=== PATIENT | female | born 2000 | race Caucasian/White ===

== ENCOUNTER 2023-05-18 12:40 | Emergency (ER) | payer MEDICAID, SELFPAY ==
[2023-05-18 12:48] VITALS: BP 112/80; PULSE 61; RESP 16; TEMP 36.7; O2SAT 98; BMI 24.1
[2023-05-18 13:50] LABS: Basophils % 0.3 %; Eosinophils # 0.1 10^3/uL (0.0-0.8); Eosinophils % 0.9 %; Hematocrit 39.7 % (36-47); Lymphocytes # 3.3 10^3/uL (0.8-4.8); Lymphocytes % 50.7 %; Mean Corpuscular HGB Conc 32.7 g/dL (30-55); Mean Corpuscular Volume 88.4 fl (85-98); Mean Platelet Volume 10.1 fL (7.4-10.4); Monocytes # 0.5 10^3/uL (0.2-0.9); Monocytes % 6.8 %; Neutrophils % 41.1 %; Nucleated Red Blood Cells % 0 %; Platelet Count 272 10^3/cmm (157-399); Red Blood Count 4.49 10^6/uL (3.85-5.65); Red Cell Distribution Width 12.4 % (12.1-15.1); White Blood Count 6.57 10^3/uL (3.29-11.43)
[2023-05-18 14:10] LABS: Alanine Aminotransferase 8 U/L (0-33); Albumin Level 4.5 g/dL (3.5-5.2); Alkaline Phosphatase 48 U/L (35-105); Anion Gap 14.7 (5-19); Aspartate Amino Transferase 13 U/L (0-32); Blood Urea Nitrogen 9 mg/dL (6-20); Calcium 9.2 mg/dL (8.5-10.5); Carbon Dioxide 23 mmol/L (22-29); Chloride 105 mmol/L (98-107); Globulin 3.3 g/dL (1.3-4.6); Glucose 92 mg/dL (65-115); HCG, Serum Qual Negative (Negative); Lipase 21 U/L (13-60); Osmolality Calculated 286 mOsm/kg (285-295); Potassium 3.7 mmol/L (3.5-5.1); Sodium 139 mmol/L (136-145); Total Bilirubin 0.7 mg/dL (0.15-1.2); Total Protein 7.8 g/dL (6.6-8.7)
[2023-05-18 14:31] LABS: Bilirubin Urine Neg (Negative); Blood Urine 2+ (Negative); Glucose Urine UA Norm (Normal); Ketones Urine Negative (Negative); Leukocyte Esterase Urine Negative (Negative); Nitrate Urine Negative (Negative); Protein Urine Neg (Negative); Urine Appearance Clear (CLEAR); Urine Color Straw (Yellow); Urobilinogen Urine Norm (Negative); pH Urine 7 (5-7)
[2023-05-18 14:32] LABS: Add Urine Culture? No; Add Urine Microscopic? YES; Bacteria Urine TRACE /hpf; RBC Urine 0-4 /hpf (0-2); Squamous Epithelial Cell Urine 0-4 /hpf (0-5); WBC Urine 0-4 /hpf (0-5)
--- NOTE | 2023-05-18 15:57 | ED_ITS ---
HPI - Abdominal Pain 2 General: Chief Complaint: Abdominal Pain Stated Complaint: abd pain Time Seen by Provider: 05/18/23 15:52 Source: patient Mode of arrival: ambulatory History of Present Illness: 23-year-old female presents emergency ro om with complaints of pelvic pain. She had cramping and discomfort. No dysuria urgency or frequency no hematuria no vomiting or diarrhea. MD elicited complaint: abdominal pain Onset (ago): day(s) Pain Consistency: intermittent and now resolved Location: Pelvis Quality: cramping Exacerbating factors: nothing Relieving factors: nothing Associated Symptoms: Denies anorexia, belching, bloating, change in bowel habits, change in stool character, chills, coffee ground emesis, constipation, GI cramping, diarrhea, dyspepsia, dysuria, excessive flatus, fever(s), heartburn, hematochezia, hematuria, hematemesis, fecal incontinence, loose stools, melena, nausea, poor appetite, syncope and vomiting Review of Systems 2 Const: Denies: fever(s) or chills Card: Denies: chest pain or syncope Resp: Denies: dyspnea GI: Denies: abdominal pain, nausea, vomiting, hematemesis, coffee ground emesis, heartburn, diarrhea, constipation, bloating, GI cramping, belching, excessive flatus, fecal incontinence, change in bowel habits, change in stool character, hematochezia or melena : Denies: dysuria, urinary frequency, urinary urgency or hematuria Musc: Denies: neck pain or back pain Skin/Breast: Denies: rash Physical Exam 2 Const: COMMON NORMALS: no acute distress GENERAL APPEARANCE: cooperative and comfortable ORIENTATION/CONSCIOUSNESS: Yes awake, Yes oriented to person, Yes oriented to place and Yes oriented to time HENMT: COMMON NORMALS: normocephalic, atraumatic and hearing grossly normal bilaterally HEAD & SCALP: normocephalic and atraumatic Resp: COMMON NORMALS: normal respiratory effort, No retractions, No use of accessory muscles and clear to auscultation bilaterally AUSCULTATION: clear to auscultation bilaterally Cardio: COMMON NORMALS: regular rate, regular rhythm and No murmurs present (Cardio) RATE: regular rate RHYTHM: regular rhythm GI: COMMON NORMALS: Soft to palpation and No hepatosplenomegaly present A USCULTATION: Yes normoactive bowel sounds PALPATION: Yes Soft to palpation, No Tenderness to palpation present (GI), No Guarding due to palpation present (GI) and Yes No hepatosplenomegaly present Extremity: COMMON NORMALS: normal to inspection, capillary refill normal, no clubbing, cyanosis or edema, no calf tenderness and no pedal edema Neuro: SENSORIUM/ORIENTATION: Yes oriented to person, Yes oriented to place and Yes oriented to time Skin: COMMON NORMALS: no rashes or lesions noted GENERAL SKIN EXAM: no rashes or lesions noted Course 2 Vital Signs: Vital signs: Vital Signs Temperature 98.1 F 05/18/23 12:48 Pulse Rate 82 05/18/23 16:54 Respiratory Rate 16 05/18/23 12:48 Blood Pressure 107/70 05/18/23 16:54 Pulse Oximetry 99 05/18/23 16:54 Oxygen Delivery Me thod Room Air 05/18/23 12:48 MDM - Abdominal Pain Medical Decision Making No acute findings at this time white count normal screening negative. Set up outpatient pelvic ultrasound Medical Records I reviewed the patient's medical records. Lab Data I reviewed the patient's lab results. 05/18/23 13:35 05/18/23 13:35 Labs/Radiology: Laboratory Results WBC 6.57 10^3/uL (3.29-11.43) 05/18/23 13:35 RBC 4.49 10^6/uL (3.85-5.65) 05/18/23 13:35 Hgb 13.00 g/dL (11.27-16.99) 05/18/23 13:35 Hct 39.7 % (36-47) 05/18/23 13:35 MCV 88.4 fl (85-98) 05/18/23 13:35 MCH 29.0 pg (27-33) 05/18/23 13:35 MCHC 32.7 g/dL (30-55) 05/18/23 13:35 RDW 12.4 % (12.1-15.1) 05/18/23 13:35 Plt Count 272 10^3/cmm (157-399) 05/18/23 13:35 MPV 10.1 fL (7.4-10.4) 05/18/23 13:35 Neut % (Auto) 41.1 % 05/18/23 13:35 Lymph % (Auto) 50.7 % 05/18/23 13:35 Grand % (Auto) 6.8 % 05/18/23 13:35 Eos % (Auto) 0.9 % 05/18/23 13:35 Baso % (Auto) 0.3 % 05/18/23 13:35 Neut # (Auto) 2.70 10^3/uL (1.8-7.7) 05/18/23 13:35 Lymph # (Auto) 3.3 10^3/uL (0.8-4.8) 05/18/23 13:35 Grand # (Auto) 0.5 10^3/uL (0.2-0.9) 05/18/23 13:35 Eos # (Auto) 0.1 10^3/uL (0.0-0.8) 05/18/23 13:35 Baso # (Auto) 0.0 10^3/uL (0.0-0.1) 05/18/23 13:35 Nucleated RBC % (auto) 0 % 05/18/23 13:35 Nucleated RBCs # 0.0 /100WBC 05/18/23 13:35 Sodium 139 mmol/L (136-145) 05/18/23 13:35 Potassium 3.7 mmol/L (3.5-5.1) 05/18/23 13:35 Chloride 105 mmol/L (98-107) 05/18/23 13:35 Carbon Dioxide 23 mmol/L (22-29) 05/18/23 13:35 Anion Gap 14.7 (5-19) 05/18/23 13:35 BUN 9 mg/dL (6-20) 05/18/23 13:35 Creatinine 0.7 mg/dL (0.5-0.9) 05/18/23 13:35 GFR Calculation 102.0 mL/min (90-130) 05/18/23 13:35 Glucose 92 mg/dL (65-115) 05/18/23 13:35 Calculated Osmolality 286 mOsm/kg (285-295) 05/18/23 13:35 Calcium 9.2 mg/dL (8.5-10.5) 05/18/23 13:35 Total Bilirubin 0.7 mg/dL (0.15-1.2) 05/18/23 13:35 AST 13 U/L (0-32) 05/18/23 13:35 ALT 8 U/L (0-33) 05/18/23 13:35 Alkaline Phosphatase 48 U/L (35-105) 05/18/23 13:35 Total Protein 7.8 g/dL (6.6-8.7) 05/18/23 13:35 Albumin 4.5 g/dL (3.5-5.2) 05/18/23 13:35 Globulin 3.3 g/dL (1.3-4.6) 05/18/23 13:35 Lipase 21 U/L (13-60) 05/18/23 13:35 HCG, Qual Negative (Negative) 05/18/23 13:35 Urine Color Straw (Yellow) 05/18/23 13:16 Urine Appearance Clear (CLEAR) 05/18/23 13:16 Urine pH 7 (5-7) 05/18/23 13:16 Ur Specific [place] 1.000 (1.005-1.030) L 05/18/23 13:16 Urine Protein Neg (Negative) 05/18/23 13:16 Urine Glucose (UA) Norm (Normal) 05/18/23 13:16 Urine Ketones Negative (Negative) 05/18/23 13:16 Urine Blood 2+ (Negative) H 05/18/23 13:16 Urine Nitrate Negative (Negative) 05/18/23 13:16 Urine Bilirubin Neg (Negative) 05/18/23 13:16 Urine Urobilinogen Norm mg/dL (Negative) 05/18/23 13:16 Ur Leukocyte Esterase Negative (Negative) 05/18/23 13:16 Urine RBC 0-4 /hpf (0-2) H 05/18/23 13:16 Urine WBC 0-4 /hpf (0-5) H 05/18/23 13:16 Ur Squamous Epith Cells 0-4 /hpf (0-5) H 05/18/23 13:16 Amorphous Sediment Not Reportable 05/18/23 13:16 Urine Bacteria Trace /hpf (NONE) 05/18/23 13:16 No radiology studies performed this visit Discharge Plan Discharge Patient Disposition: Home Clinical Impression: Pelvic pain Condition: Stable Prescriptions: New diclofenac sodium 75 mg tablet,delayed release (DR/EC) 75 mg PO Q12H PRN (Reason: pain) Qty: 20 0RF Discharge Orders: Discharge ED (Routine); Ordered 05/18/23 Ordered By: Faraz Carroll Discharge Diet: Usual diet Discharge Activity: Increase activity as tolerated Patient Instructions: Opioid Safety, Pain Management Activity Restrictions/Additional Instructions: Thank you for choosing [facility] for your healthcare needs today. Please realize this is an emergency room and that we are providing you with a medical screening exam and this may not be complete and all inclusive of all the testing and or work up that you may need to determine your ailment or severity of your illness. It is very important that you follow up as instructed or that you return to the Emergency Department should you have concerns or if your condition changes or worsens in any way. You were seen today with complaint of pelvic pain. Laboratory tests including the urine were not clinically significant. Your abdominal exam is benign. Will set up an outpatient pelvic ultrasound follow-up with your primary care doctor return if you have further problems. Coding Level of Care Code ED Food Service Specialist for Tyra Garcia
--- NOTE | 2023-05-18 16:52 | PC.NURSE ---
ASSUMED CARE OF PT AT DISCHARGE. PRIMARY NURSE IN CRITICAL PTS ROOM.
[2023-05-18 16:54] VITALS: BP 107/70; PULSE 82; O2SAT 99
--- NOTE | 2023-05-31 08:54 | DCPLANNER ---
A message was sent to [facility] for this patient to establish care with a provider. Will need a primary care provider prior to sending order for pelvic ultrasound to centralized scheduling. Message was sent to [place] on 05/31/23 at 0855.
--- NOTE | 2023-07-23 10:02 | DCPLANNER ---
I called and spoke with [facility] ( Mildred) 07/23/23 at 1002. They have been trying to get ahold of patient to set up an appointment at this time patient does not have an appointment since they are unable to reach her.
== END 2023-05-18 16:55 | disposition home or self-care (01) ==
PROVIDERS: Physician Assistant; Emergency Provider Family Medicine
DX: R10.2 Pelvic and perineal pain (principal)
CPT/HCPCS: 80053; 81001; 83690; 84703; 85025; 99283

== ENCOUNTER → 2023-09-21 17:58 | Outpatient (BNVA) | payer SELFPAY | PROVIDERS: Visit Provider Nurse Practitioner | DX: R39.9 Unspecified symptoms and signs involving the genitourinary system (principal) | CPT/HCPCS: 81000 ==

== ENCOUNTER → 2023-10-08 12:23 | Outpatient (BNVA) | payer SELFPAY | PROVIDERS: Visit Provider Registered Nurse Neonatal Intensive Care | DX: S99.922A Unspecified injury of left foot, initial encounter (principal); W55.12XA Struck by horse, initial encounter | CPT/HCPCS: 73630 ==